=== PATIENT | female | born 1960 | race Caucasian/White ===

== ENCOUNTER → 2018-03-23 12:58 | Outpatient (CLI) | payer BC, SELFPAY ==
[2018-03-22] MEDS: Zolpidem Tartrate 5 MG Tablet PO (22:00)
== END ==
PROVIDERS: Visit Provider Psychiatry & Neurology Psychiatry
DX: G47.61 Periodic limb movement disorder (principal); I49.3 Ventricular premature depolarization
CPT/HCPCS: 95810; 95811